=== PATIENT | male | born 2000 | race Caucasian/White ===

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

== ENCOUNTER → 2021-09-11 | Outpatient (CLI) | payer OTHER ==
[~2021-09-11] MED LIST changes: +CEFD300 PO; +ONDA4ODT MM
[2021-09-13 03:11] LABS: CHLAMYDIA TRACHOMATIS, NAA Positive (Negative)
== END | disposition home or self-care (01) ==
LOC: LAB 17:51 → LAB SHORT 17:51
PROVIDERS: Physician Assistant
DX: Z72.51 High risk heterosexual behavior (principal)
CPT/HCPCS: 87070; 87205; 87491; 87591

== ENCOUNTER → 2021-12-31 | Outpatient (CLI) | payer OTHER ==
[~2021-12-31] MED LIST changes: +SERT100
[2022-01-03 00:11] LABS: CHLAMYDIA BY NAA Negative (Negative); GONOCOCCUS BY NAA Negative (Negative); TRICH VAG BY NAA Negative (Negative)
== END | disposition home or self-care (01) ==
LOC: LAB SHORT 12:16 → LAB 12:16
PROVIDERS: Physician Assistant
DX: Z09 Encounter for follow-up examination after completed treatment for conditions other than malignant neoplasm (principal); Z86.19 Personal history of other infectious and parasitic diseases
CPT/HCPCS: 87491; 87591; 87661

== ENCOUNTER → 2022-05-03 | Outpatient (CLI) | payer OTHER ==
[2022-05-03 12:13] LABS: BASOPHILS ABSOLUTE AUTO 0.04 K/mm3 (0.00-0.23); BASOPHILS PERCENT AUTO 1 % (0-2); EOSINOPHILS ABSOLUTE AUTO 0.12 K/mm3 (0.00-0.68); EOSINOPHILS PERCENT AUTO 2 % (0-6); Hemoglobin 17.1 g/dL (13.5-17.5); IMMATURE GRAN ABSOLUTE AUTO 0.02 K/mm3 (0.00-0.10); IMMATURE GRAN PERCENT AUTO 0 % (0-1); LYMPHOCYTES PERCENT AUTO 29 % (21-46); MONOCYTES ABSOLUTE AUTO 1.08 K/mm3 (0.16-1.47); MONOCYTES PERCENT AUTO 14 % (4-13); Mean Corpuscular HGB 32.8 pg (26.0-34.0); Mean Corpuscular HGB Conc 34.9 g/dL (31.5-36.5); Mean Corpuscular Volume 94 fL (80-100); Mean Platelet Volume 8.8 fL (9.1-12.4); NEUTROPHILS ABSOLUTE AUTO 4.06 K/mm3 (1.96-9.15); NEUTROPHILS PERCENT AUTO 54 % (41-73); Platelet Count 265 K/mm3 (150-400); RDW Coefficient Variation 12.5 % (11.7-14.2); RDW Standard Deviation 42.9 fL (35.1-46.3); Red Blood Cell Count 5.22 M/mm3 (4.30-5.90); White Blood Cell Count 7.52 K/mm3 (4.00-11.30)
[2022-05-03 12:21] LABS: Bun/Creatinine Ratio 12.1 (12.0-20.0); Calcium, Blood 9.4 mg/dL (8.5-10.1); Creatinine, Blood 0.91 mg/dL (0.60-1.20); Potassium, Blood 4.2 mmol/L (3.5-5.5)
== END ==
LOC: LAB SHORT 12:09 → LAB 12:09
PROVIDERS: Physician Assistant
DX: R07.9 Chest pain, unspecified (principal)
CPT/HCPCS: 80048; 84484; 85025

== ENCOUNTER 2022-07-08 04:19 | Emergency (ER) | payer OTHER ==
[~2022-07-08] VITALS: Ht 162.6 cm; Wt 85.7 kg
== END 2022-07-08 07:25 | disposition home or self-care (01) ==
LOC: ER 04:19
DX: S93.601A Unspecified sprain of right foot, initial encounter (principal); X50.1XXA Overexertion from prolonged static or awkward postures, initial encounter; F32.A Depression, unspecified; Z88.0 Allergy status to penicillin; Z88.1 Allergy status to other antibiotic agents; Z88.8 Allergy status to other drugs, medicaments and biological substances; Z79.899 Other long term (current) drug therapy
CPT/HCPCS: 73620

== ENCOUNTER 2022-11-19 09:35 | Emergency (ER) | payer OTHER ==
[~2022-11-19] VITALS: Ht 162.6 cm; Wt 83.9 kg
[2022-11-19 10:02] VITALS: BP 128/81
[2022-11-19] MEDS ORDERED: Ultram50 MG PO (10:05)
[2022-11-19] MEDS ORDERED: CLIN150 PO (10:05)
== END 2022-11-19 10:08 | disposition home or self-care (01) ==
LOC: ER 09:35
DX: K04.7 Periapical abscess without sinus (principal); Z88.0 Allergy status to penicillin; Z88.8 Allergy status to other drugs, medicaments and biological substances; Z88.1 Allergy status to other antibiotic agents; Z79.899 Other long term (current) drug therapy
CPT/HCPCS: 99282